=== PATIENT | female | born 1965 | race Caucasian/White ===

== ENCOUNTER 2021-09-17 04:17 | Emergency (ER) | payer MEDICAID ==
[~2021-09-17] VITALS: Ht 162.6 cm; Wt 81.7 kg
[~2021-09-17 04:17] MED LIST: KEFLEX500 MG PO; ULTRAM 50MG TAB50 MG PO
[2021-09-17] MEDS ORDERED: DIFLUCAN10 MG/ML VAG (04:51)
[2021-09-17] MEDS ORDERED: MUSCLE RELAXER (04:52)
[2021-09-17] MEDS ORDERED: MELOXICAM7.5 MG (04:52)
[2021-09-17 04:55] LABS: URINE BLOOD 3+ (Negative); URINE COLOR YELLOW; URINE GLUCOSE-RANDOM NEGATIVE (Negative); URINE KETONES 1+ (Negative); URINE LEUKOCYTES-REFLEX NEGATIVE (Negative); URINE NITRITE-REFLEX NEGATIVE (Negative); URINE PROTEIN NEGATIVE (Negative); URINE UROBILINOGEN 0.2 E.U./dl (0.2-1.0)
[2021-09-17 05:26] LABS: HEMATOCRIT 41.1 % (37.0-47.0); HEMOGLOBIN 13.9 gm/dL (12.0-15.0); MCH 28.7 pg (26.0-34.0); MCHC 33.8 g/dL (28.0-37.0); MCV 84.9 fL (80.0-100.0); MPV 8.1 fl. (7.2-11.1); NUCLEATED RBCS 0 /100WBC; PLATELET COUNT* 339 thou/uL (150-400); RBC 4.84 mil/uL (4.20-5.00); RDW-CV 13.5 % (10.5-14.5); WBC 14.5 thou/uL (4.0-11.0)
[2021-09-17 05:30] LABS: CALCIUM 8.8 mg/dL (8.5-10.1); CREATININE 0.8 mg/dL (0.6-1.3); POTASSIUM 3.9 mmol/L (3.5-5.1)
[2021-09-17 05:35] LABS: ALBUMIN 3.5 g/dL (3.4-5.0); TOTAL BILIRUBIN 0.4 mg/dL (<0.1-1.0); TOTAL PROTEIN 7.8 g/dL (6.4-8.2)
[2021-09-17 05:38] LABS: ICTOTEST (BILI CONFIRMATORY) Negative (Negative); URINE BILIRUBIN 1+ (Negative)
[2021-09-17 05:39] LABS: URINE CLARITY SL HAZY
[2021-09-17 05:41] LABS: AMORPHOUS URATES Moderate /LPF (None Seen); CASTS None Seen /LPF (None Seen); MUCUS 4-6 Moderate strn/LPF (None Seen); SQUAMOUS 0-3 Few /LPF (0-3); URINE RBC 3-10 Few /HPF (0-2); URINE WBC-REFLEX None Seen /HPF (0-5)
[2021-09-17] MEDS ORDERED: ZOFRAN ODT4 MG PO (05:58)
[2021-09-17] MEDS ORDERED: DICYCLOMINE HCL20 MG PO (05:58)
[2021-09-17] MEDS ORDERED: CEPHALEXIN500 MG PO (06:06)
[2021-09-17 06:17] VITALS: BP 128/74
[2021-09-17 07:56] LABS: ABSOLUTE LYMPHOCYTES 1.6 thou/uL (0.8-5.3); ABSOLUTE MONOCYTES 0.1 thou/uL (0.0-1.2); ABSOLUTE NEUTROPHILS 12.8 thou/uL (1.6-8.1); PLATELET ESTIMATE ADEQUATE
== END 2021-09-17 06:20 | disposition home or self-care (01) ==
LOC: M.ERS 04:17
PROVIDERS: Personal Emergency Response Attendant
DX: R11.2 Nausea with vomiting, unspecified (principal); R25.1 Tremor, unspecified; R10.84 Generalized abdominal pain; Z98.890 Other specified postprocedural states; Z79.899 Other long term (current) drug therapy